=== PATIENT | male | born 1995 ===

== ENCOUNTER 2017-05-21 14:18 | Emergency (ER) | payer MEDICAID ==
[2017-05-21 14:19] VITALS: BMI 26.1
[2017-05-21 14:35] VITALS: BP 132/78; PULSE 93; RESP 16; TEMP 98.4; O2SAT 100
--- NOTE | 2017-05-21 14:44 | ED PDOC ---
Lower Extremity Pain/Injury Time Seen by Provider: 05/21/17 14:38 Chief Complaint (Nursing): Lower Extremity Problem/Injury Chief Complaint (Provider): Right Ankle Injury History Per: Patient History/Exam Limitations: no limitations Onset/Duration Of Symptoms: Mins Current Symptoms Are (Timing): Still Present Additional Complaint(s): Baljeet Leone is a 22 year old male that presents to the ED with a chief complaint of right ankle pain that began as a result of an injury he sustained while playing basketball prior to arrival in ED. Patient reports that he cannot bear any weight on his right ankle and that he has not taken any medication for his pain. Injury occurred 20 min prior to arrival. Past Medical History Reviewed: Historical Data, Nursing Documentation, Vital Signs Vital Signs: Last Vital Signs Temp 98.4 F 05/21/17 14:33 Pulse 93 H 05/21/17 14:33 Resp 16 05/21/17 14:33 BP 132/78 05/21/17 14:33 Pulse Ox 100 05/21/17 14:33 - Medical History PMH: No Chronic Diseases - Surgical History Surgical History: No Surg Hx - Family History Family History: States: No Known Family Hx - Living Arrangements Living Arrangements: With Family - Social History Current smoker - smoking cessation education provided: No Alcohol: None Drugs: Denies - Home Medications Home Medications: Ambulatory Orders Medication Instructions Recorded Albuterol HFA [Ventolin HFA 90 2 puff IH Q4 #1 puff 05/16/16 mcg/actuation (8 g)] Ibuprofen [Motrin Tab] 800 mg PO Q8 PRN #20 tab 05/21/17 - Allergies Allergies/Adverse Reactions: Allergies Allergy/AdvReac Type Severity Reaction Status Date / Time No Known Allergies Allergy Verified 05/21/17 14:32 Wells Criteria for PE - Wells Criteria for Pulmonary Embolism Clinical Signs and Symptoms of DVT: No P.E is #1 Diagnosis, or Equally Likely: No Heart Rate >100: No Immobilization at least 3 days;Surgery previous 4 weeks: No Previous, objectively diagnosed PE or DVT: No Hemoptysis: No Malignancy w/treatment within 6 months, or palliative: No Total Score: 0 Review of Systems ROS Statement: Except As Marked, All Systems Reviewed And Found Negative Musculoskeletal: Positive for: Leg Pain (right ankle pain) Physical Exam - Reviewed Nursing Documentation Reviewed: Yes Vital Signs Reviewed: Yes - Physical Exam Appears: Positive for: Well, Non-toxic, No Acute Distress Skin: Positive for: Normal Color. Negative for: Rash Eye Exam: Positive for: Normal appearance Pulses-Dorsalis Pedis (L): 2+ Pulses-Dorsalis Pedis (R): 2+ Pulses-Post. Tibialis (L): 2+ Pulses-Post. Tibialis (R): 2+ Extremity: Positive for: Tenderness (TTP right lateral malleolus. Nontender left foot. ), Swelling (moderate swelling of right lateral malleolus), Other ( Normal distal sensation) Neurologic/Psych: Positive for: Alert, Oriented. Negative for: Motor/Sensory Deficits - ECG O2 Sat by Pulse Oximetry: 100 (RA) Pulse Ox Interpretation: Normal - Other Rad Right ankle x-ray X-Ray: Interpreted by Me, Viewed By Me X-Ray Interpretation: no fx no dis Medical Decision Making Medical Decision Making: Impression: Right Ankle Injury Plan: * X-Ray Right Foot * Ibuprofen 600 mg PO * Reevaluation Crutches given, see procedure note. Rx motrin given, referral to podiatry clinic. Scribe Attestation: Documented by Nadia Zelaya, acting as a scribe for Faustina Greer PA-C. Provider Scribe Attestation: All medical record entries made by the Scribe were at my direction and personally dictated by me. I have reviewed the chart and agree that the record accurately reflects my personal performance of the history, physical exam, medical decision making, and the department course for this patient. I have also personally directed, reviewed, and agree with the discharge instructions and disposition. Procedures - Splinting Location: right ankle Pre-Made Type: alejandra wrap, aircast, ortho shoe Pre-Proc Neuro Vasc Exam: normal Post-Proc Neuro Vasc Exam: normal Disposition - Clinical Impression Clinical Impression: Right ankle sprain - Patient ED Disposition Is Patient to be Admitted: No Counseled Patient/Family Regarding: Studies Performed, Diagnosis, Need For Followup, Rx Given - Disposition Referrals: Podiatry Clinic [Outside] Disposition: Routine/Home Disposition Time: 15:03 Condition: STABLE Additional Instructions: Ice and elevate affected area. Take rx meds as directed as needed for pain. Follow up in 2-3 days with podiatry clinic. Prescriptions: Ibuprofen [Motrin Tab] 800 mg PO Q8 PRN #20 tab PRN Reason: Pain, Moderate (4-7) Instructions: Ankle Sprain (ED), Ankle Stirrup Splint (ED), Crutch Instructions (ED) Forms: [employer] (Italian)
--- NOTE | 2017-05-22 07:22 | RAD ---
PROCEDURE: Right ankle Radiographs. HISTORY: trauma COMPARISON: None. FINDINGS: BONES: Normal. No fracture. JOINTS: Normal. No dislocation. SOFT TISSUES: Lateral malleolar soft tissue swelling compatible with a sprain. . OTHER FINDINGS: None. IMPRESSION: Lateral malleolar soft tissue swelling compatible with a sprain. .
== END 2017-05-21 15:40 | disposition home or self-care (01) ==
LOC: H.ER 14:18
DX: S93.401A Sprain of unspecified ligament of right ankle, initial encounter (principal); Y93.67 Activity, basketball